=== PATIENT | male | born 1975 | race Caucasian/White ===

== ENCOUNTER 2021-06-28 15:25 | Emergency (ER) | payer OTHER ==
--- NOTE | 2021-06-28 16:04 | RAD REPORT ---
EXAM DESCRIPTION: RAD - Chest Single View - 06/28/2021 3:57 pm CLINICAL HISTORY: DYSPNEA Chest pain. FINDINGS: Portable technique limits examination quality. Mildly prominent interstitial lung markings. This may represent a viral infection or asthma. The hear t is normal in size. No displaced fractures.Cervical hardware plate.
--- NOTE | 2021-06-28 16:13 | ER ---
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 it has been 48 hours later now and I still smell it and having slight shortness of breath.". Coronavirus screen: At this time, the client does not indicate any symptoms associated with coronavirus-19. Ebola Screen: Patient negative for fever greater than or equal to 101.5 degrees Fahrenheit, and additional compatible Ebola Virus Disease symptoms. Initial Sepsis Screen: Does the patient meet any 2 criteria? No. Patient's initial sepsis screen is negative. Does the patient have a suspected source of infection? No. Patient's initial sepsis screen is negative. Risk Assessment: Do you want to hurt yourself or someone else? Patient reports no desire to harm self or others. Onset of symptoms was June 26, 2021. 15:30 Method Of Arrival: Ambulatory j 15:30 Acuity: JOSE J 3 jd3 Triage Assessment: 15:30 General: Appears in no apparent distress. comfortable, Behavior is cooperative, bp appropriate for age, anxious. Pain: Denies pain. EENT: No deficits noted. Neuro: No deficits noted. Cardiovascular: No deficits noted. Respiratory: Reports shortness of breath. GI: No signs and/or symptoms were reported involving the gastrointestinal system. : No signs and/or symptoms were reported regarding the genitourinary system. Derm: No deficits noted. Musculoskeletal: No deficits noted. Historical: - Allergies: 15:33 No Known Allergies; jd3 - Home Meds: 15:33 None [Active]; jd3 - PMHx: 15:33 None; jd3 - PSHx: 15:33 back surgery; Cholecystectomy; jd3 - Immunization history:: Adult Immunizations up to date, Client reports receiving the 2nd dose of the Covid vaccine, Date received: April 2021. - Social history:: Smoking status: Patient reports use of chewing tobacco. Screenin:47 Abuse screen: Denies threats or abuse. Denies injuries from another. Nutritional ch5 screening: No deficits noted. Tuberculosis screening: No symptoms or risk factors identified. Fall Risk None identified. Assessment: 15:47 Reassessment: No changes from previously documented assessment. Respiratory: Reports ch5 Mild shortness of breath. 16:37 General: PT D/ C HOME AMBULATORY, DX WITH EXPOSURE TO HAZARDOUS MATEIAL. bp Vital Signs: 15:34 BP 155 / 103; Pulse 98; Resp 17 S; Temp 99.3(TE); Pulse Ox 100% on R/A; Weight 83.91 kg jd3 (R); Height 5 ft. 6 in. (167.64 cm) (R); Pain 0/10; 15:34 Body Mass Index 29.86 (83.91 kg, 167.64 cm) [facility] ED Course: 15:27 Patient arrived in ED. as 15:33 Triage completed. jd3 15:34 Tiana Hampton FNP-C is [facility]. kb 15:34 Kamran Navarrete MD is Attending Physician. kb 15:34 Arm band placed on. jd3 15:47 Bed in low position. Call light in reach. ch5 15:47 No provider procedures requiring assistance completed. ch5 15:48 Corey Laurent, RN is Primary Nurse. ch5 15:57 Chest Single View XRAY In Process Unspecified. EDMS 16:37 Patient did not have IV access during this emergency room visit. bp Administered Medications: No medications were administered Outcome: 16:13 Discharge ordered by MD. kb 16:33 Patient left the ED. ch5 16:37 Discharged to home ambulatory. bp 16:37 Condition: stable 16:37 Discharge instructions given to patient, Instructed on discharge instructions, follow up and referral plans. Demonstrated understanding of instructions, follow-up care. Signatures: Dispatcher [employer] [facility] Tiana Hampton FNP-C FNP-Dora Flores Jonathon, RN RN jd3 Peltier, Brian, RN RN bp Heath, Christopher, ASHLEY RN ch5 Corrections: (The following items were deleted from the chart) 15:37 15:30 Chief complaint: Patient states: "I was sifening dessal and accidently inhaled jd3 the vapor. it has been 48 hours later now and I still smell it and having slight shortness of breath.": jd3
--- NOTE | 2021-06-28 16:13 | EDPHYS ---
Physician Documentation [facility] Name: Darshan Casas Age: 45 yrs Sex: Male : 1975 Arrival Date: 06/28/2021 Time: 15:27 Bed 5 Private MD: ED Physician Kamran Navarrete HPI: 06/28 16:19 This 45 yrs old Male presents to ER via Ambulatory with complaints of kb Inhalation- diesel vapors. 16:19 Type of Exposure: potential inhalation, a chemical, diesel. Area of exposure: mouth. kb Context: The problem was sustained at work. Onset: The symptoms/episode began/occurred 48 hour(s) ago. Symptoms: The patient does not have any acute complaints. The patient has not experienced similar symptoms in the past. The patient has not recently seen a physician. 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 Reports he can still smell diesel when he exhales and it has been about 48 hours. "I feel good, I just researched it and got scared so i wanted to be checked out.". Historical: - Allergies: 15:33 No Known Allergies; jd3 - Home Meds: 15:33 None [Active]; jd3 - PMHx: 15:33 None; jd3 - PSHx: 15:33 back surgery; Cholecystectomy; jd3 - Immunization history:: Adult Immunizations up to date, Client reports receiving the 2nd dose of the Covid vaccine, Date received: April 2021. - Social history:: Smoking status: Patient reports use of chewing tobacco. ROS: 16:18 Constitutional: Negative for fever, chills, and weight loss. kb 16:18 Respiratory: Positive for can smell diesel on exhale. 16:18 All other systems are negative. Exam: 16:18 Constitutional: This is a well developed, well nourished patient who is awake, alert, kb and in no acute distress. Head/Face: Normocephalic, atraumatic. ENT: Moist Mucous membranes Cardiovascular: Regular rate and rhythm with a normal S1 and S2. No gallops, murmurs, or rubs. No pulse deficits. Respiratory: Respirations even and unlabored. No increased work of breathing, no retractions or nasal flaring. Skin: Warm, dry with normal turgor. Normal color. MS/ Extremity: Pulses equal, no cyanosis. Neurovascular intact. Full, normal range of motion. Neuro: Awake and alert, GCS 15, oriented to person, place, time, and situation. Moves all extremities. Normal gait. Psych: Awake, alert, with orientation to person, place and time. Behavior, mood, and affect are within normal limits. Vital Signs: 15:34 BP 155 / 103; Pulse 98; Resp 17 S; Temp 99.3(TE); Pulse Ox 100% on R/A; Weight 83.91 kg jd3 (R); Height 5 ft. 6 in. (167.64 cm) (R); Pain 0/10; 15:34 Body Mass Index 29.86 (83.91 kg, 167.64 cm) jd3 MDM: 15:34 Patient medically screened. kb 16:18 Data reviewed: vital signs, nurses notes. Data interpreted: Pulse oximetry: on room air kb is 100 %. Interpretation: normal. Counseling: I had a detailed discussion with the patient and/or guardian regarding: the historical points, exam findings, and any diagnostic results supporting the discharge/admit diagnosis, radiology results, the need for outpatient follow up, a family practitioner, to return to the emergency department if symptoms worsen or persist or if there are any questions or concerns that arise at home. 06/28 15:41 Order name: Chest Single View XRAY; Complete Time: 16:07 kb Administered Medications: No medications were administered Disposition: 17:08 Co-signature as Attending Physician, Kamran Navarrete MD I agree with the assessment and kdr plan of care. Disposition Summary: 06/28/21 16:13 Discharge Ordered Location: Home kb Condition: Stable kb Diagnosis - Contact with and (suspected) exposure to hazardous, chiefly nonmedicinal, chemicals kb Followup: kb - With: Emergency Department - When: As needed - Reason: Worsening of condition Followup: kb - With: Private Physician - When: 2 - 3 days - Reason: Recheck today's complaints, Continuance of care, Re-evaluation by your physician Discharge Instructions: - Discharge Summary Sheet kb - Chemical Inhalation Injury, Adult kb Forms: - Medication Reconciliation Form kb - Thank You Letter kb - Antibiotic Education kb - Prescription Opioid Use kb - Work release form ch5 Signatures: Dispatcher [employer] Tiana Elliott, HAYDEN-C HAYDEN-Kamran Cedillo MD MD kdr Davies, Jonathon, RN RN jd3 Corrections: (The following items were deleted from the chart) 15:39 15:35 Oxygen ordered. kb kb 15:44 15:35 Chest Single View+RAD.RAD.BRZ ordered. EDMS EDMS
[2021-06-28 16:54] VITALS: BP 155/103; TEMP 99.3; O2SAT 100
== END 2021-06-28 16:33 | disposition home or self-care (01) ==
LOC: ER 15:25
DX: Z77.098 Contact with and (suspected) exposure to other hazardous, chiefly nonmedicinal, chemicals (principal)
CPT/HCPCS: 71045; 99283